=== PATIENT | female | born 1970 ===

== ENCOUNTER 2018-10-14 10:35 | Outpatient (CLI) | payer OTHER | END 2018-10-14 10:36 | disposition home or self-care (01) | LOC: C.MAMMO 10:35 | DX: Z12.31 Encounter for screening mammogram for malignant neoplasm of breast (principal) ==

== ENCOUNTER 2018-11-30 09:12 | Outpatient (CLI) | payer OTHER | END 2018-11-30 09:13 | disposition home or self-care (01) | LOC: C.USIC 09:12 ==

== ENCOUNTER 2018-11-30 09:26 | Outpatient (CLI) | payer OTHER | END 2018-11-30 09:27 | disposition home or self-care (01) | LOC: C.RADIC 09:26 | DX: Z01.818 Encounter for other preprocedural examination (principal) ==